=== PATIENT | male | born 1960 | race Caucasian/White ===

== ENCOUNTER 2024-08-26 16:47 | Emergency (ER) | payer OTHER, SELFPAY ==
[2024-08-26 17:02] VITALS: BP 183/91; PULSE 80; RESP 16; TEMP 37.8; O2SAT 99
--- NOTE | 2024-08-26 17:07 | ED_ITS ---
HPI - URI/Sore Throat General Chief Complaint: Upper Respiratory Infection Stated Complaint: achy,tired,tired Time Seen by Provider: 08/26/24 17:07 Source: patient, RN notes reviewed and old records reviewed Mode of arrival: ambulatory Limitations: no limitations History of Present Illness HPI Narrative: Patient presents with complaints of flu-like symptoms that began yesterday. He has been taking [id number] medication for his symptoms. Blood pressure is noted. Patient does report that he has ?white coat syndrome?. Repeat blood pressure was slightly better. He denies any shortness of breath or chest pain. Related Data Home Medications ?Medication ?Instructions ?Recorded ?Confirmed ?Last Taken ?Type amlodipine 10 mg tablet 10 mg PO DAILY 08/26/24 08/26/24 Unknown History aspirin 81 mg tablet,delayed 81 mg PO DAILY 08/26/24 08/26/24 Unknown History release (Adult Low Dose Aspirin) clonidine HCl 0.3 mg tablet 0.3 mg PO BID 08/26/24 08/26/24 Unknown History furosemide 20 mg tablet 20 mg PO DAILY 08/26/24 08/26/24 Unknown History lisinopril 40 mg tablet 40 mg PO BID 08/26/24 08/26/24 Unknown History metoprolol succinate 50 mg 50 mg PO DAILY 08/26/24 08/26/24 Unknown History tablet,extended release 24 hr omeprazole 40 mg capsule,delayed 40 mg PO BID 08/26/24 08/26/24 Unknown History release simvastatin 20 mg tablet 20 mg PO DAILY 08/26/24 08/26/24 Unknown History spironolactone 25 mg tablet 25 mg PO DAILY 08/26/24 08/26/24 Unknown History Allergies Allergy/AdvReac Type Severity Reaction Status Date / Time No Known Allergies Allergy Unverified 08/26/24 16:54 Review of Systems Review of Systems: All systems reviewed & are unremarkable except as noted in HPI and below Constitutional: Constitutional: Reports no additional constitutional complaints, Reports body ache(s), Reports fever(s) and Reports headache(s) ENT: Reports system reviewed and no additional complaints, except as documented, Reports nasal congestion, Reports nasal discharge and Reports sore throat Cardiovascular: Cardiovascular: Reports no additional cardiovascular co mplaints Respiratory: Respiratory: Reports no additional respiratory complaints and Reports cough Gastrointestinal: Gastrointestinal: Reports no additional gastrointestinal complaints PMFSH Comments At the time of my signature, I reviewed and agree with the nursing past medical, surgical, social, and family history. There is no relevant family history pertinent to the patient complaint. Exam Const: General: cooperative, no acute distress, alert and awake Orientation/consciousness: oriented to person, oriented to place and oriented to time HENMT: Head: normal to inspection Ears: TM's normal bilaterally Mouth: Yes moist mucous membranes Throat: postnasal drainage Resp: Effort & Inspection: normal respiratory effort and able to speak in complete sentences Auscultation: clear to auscultation bilaterally, no crackles, no rales, no rhonchi and no wheezes Cardio: Palpation: normal PMI Rate: regular rate Rhythm: regular rhythm Heart sounds: S1 normal heart sound present and S2 normal heart sound present Neuro: General: oriented to person, oriented to place and oriented to time Cranial nerves: Yes CN's II-XII intact bilaterally Psych: Appearance: grossly normal Thought process: Normal thought process present Insight: Good insight present (Psych) Judgement: Good judgement present (Psych) Course Course Level of Care: Express Care Visit Vital Signs Vital signs: Vital Signs Temperature 100.1 F H 08/26/24 17:02 Pulse Rate 80 08/26/24 17:02 Respiratory Rate 16 08/26/24 17:02 Blood Pressure 183/91 H 08/26/24 17:02 Pulse Oximetry 99 08/26/24 17:02 Oxygen Delivery Room Air 08/26/24 17:02 Temperature 100.1 F H 08/26/24 17:02 Pulse Rate 80 08/26/24 17:02 Respiratory Rate 16 08/26/24 17:02 Blood Pressure 183/91 H 08/26/24 17:02 Pulse Oximetry 99 08/26/24 17:02 Oxygen Delivery Room Air 08/26/24 17:02 Reviewed MDM - URI/Sore Throat MDM Narrative Medical decision making narrative: Patient looks remarkably good for having positive COVID and positive influenza B. Supportive care measures were discussed. Tamiflu prescribed. Blood pressure discussed at length. Patient does report that that he typically runs high in any medical office setting. States that he did take medications as prescribed today. He denies any chest pain or shortness of breath. He is nontoxic appearing, no distress. Discharge instructions reviewed with patient, as well as provided in writing per nursing staff. The instructions also include specific and strict return/GO TO THE ER as well as f/u information. All questions have been answered, and the patient deny any further questions with discharge and discharge plan. Some parts of this dictation were generated by voice recognition software and may contain typographical and/or grammatical inaccuracies. Differential Diagnosis Differential diagnosis: Likely upper respiratory infection, otitis media, viral infection, influenza and pharyngitis Medical Records Attestation: I reviewed the patient's medical records. Lab Data Attestation: I reviewed the patient's lab results. Discharge Plan Discharge Clinical Impression: Influenza, COVID Patient Disposition: Home, Self-Care Condition: Stable Instructions: Antibiotic Form, Influenza (ED), How to Recover from COVID-19 at Home (ED) Additional Instructions: Take all medication as prescribed. Follow with primary care provider. Emergency department for new or worse symptoms Patient Language: Northern Irish Prescriptions: New oseltamivir [Tamiflu] 75 mg capsule 75 mg PO Q12H 5 Days Qty: 10 0RF oseltamivir [Tamiflu] 75 mg capsule 75 mg PO Q12H 5 Days Qty: 10 0RF No Action amlodipine 10 mg tablet 10 mg PO DAILY clonidine HCl 0.3 mg tablet 0.3 mg PO BID furosemide 20 mg tablet 20 mg PO DAILY lisinopril 40 mg tablet 40 mg PO BID metoprolol succinate 50 mg tablet extended release 24 hr 50 mg PO DAILY omeprazole 40 mg capsule,delayed release(DR/EC) 40 mg PO BID simvastatin 20 mg tablet 20 mg PO DAILY spironolactone 25 mg tablet 25 mg PO DAILY aspirin [Adult Low Dose Aspirin] 81 mg tablet,delayed release (DR/EC) 81 mg PO DAILY Follow-up/Referrals: PHYSICIAN NOT ON STAFF,NONSTAFF [Primary Care Provider] - 3 Days Time of Disposition: 17:56
[2024-08-26 17:24] LABS: EDINFLUASCREEN Negative (Negative); EDINFLUBSCREEN Negative (Negative)
[2024-08-26 17:39] LABS: EDCOVIDSCREEN Positive (Negative)
[2024-08-26 18:10] VITALS: BP 168/102
== END 2024-08-26 18:10 | disposition home or self-care (01) ==
PROVIDERS: Emergency Provider Nurse Practitioner Family
DX: J10.1 Influenza due to other identified influenza virus with other respiratory manifestations (principal); U07.1 COVID-19; I10 Essential (primary) hypertension; E78.00 Pure hypercholesterolemia, unspecified; K21.9 Gastro-esophageal reflux disease without esophagitis; Z85.038 Personal history of other malignant neoplasm of large intestine; Z79.82 Long term (current) use of aspirin
CPT/HCPCS: 87426; 87804; 99203; G0463

== ENCOUNTER 2025-06-02 12:56 | Emergency (ER) | payer OTHER, SELFPAY ==
[2025-06-02 13:08] VITALS: BP 173/96; PULSE 70; RESP 18; TEMP 36.6; O2SAT 98
--- NOTE | 2025-06-02 13:48 | ED.NEUROSD ---
HPI - Neuro Symptoms/Deficit General Chief Complaint: Neuro Symptoms/Deficit Stated Complaint: I think I might be having an allergic reaction Time Seen by Provider: 06/02/25 13:37 Source: patient Mode of arrival: ambulatory Limitations: no limitations History of Present Illness HPI Narrative: This is a 65-year-old male with history of hypertension, pre diabetes who presents the ED for left facial droop. Patient states that since yesterday, he has been having facial droop. Denies headache. He states that he felt like he had an ear infection so he started taking some drops of Ciprodex that he a prior infection. Denies fevers, chills, numbness. Related Data Home Medications ?Medication ?Instructions ?Recorded ?Confirmed ?Last Taken ?Type amlodipine 10 mg tablet 10 mg PO DAILY 08/26/24 08/26/24 Unknown History aspirin 81 mg tablet,delayed 81 mg PO DAILY 08/26/24 08/26/24 Unknown History release (Adult Low Dose Aspirin) clonidine HCl 0.3 mg tablet 0.3 mg PO BID 08/26/24 08/26/24 Unknown History furosemide 20 mg tablet 20 mg PO DAILY 08/26/24 08/26/24 Unknown History lisinopril 40 mg tablet 40 mg PO BID 08/26/24 08/26/24 Unknown History metoprolol succinate 50 mg 50 mg PO DAILY 08/26/24 08/26/24 Unknown History tablet,extended release 24 hr omeprazole 40 mg capsule,delayed 40 mg PO BID 08/26/24 08/26/24 Unknown History release simvastatin 20 mg tablet 20 mg PO DAILY 08/26/24 08/26/24 Unknown History spironolactone 25 mg tablet 25 mg PO DAILY 08/26/24 08/26/24 Unknown History Allergies Allergy/AdvReac Type Severity Reaction Status Date / Time No Known Allergies Allergy Verified 06/02/25 13:13 Review of Systems Review of Systems: Gen.: Denies fevers or chills Eyes: Denies eye pain or visual change ENT: Denies congestion Respiratory: Denies shortness of breath or cough CV: Denies chest pain or palpitations GI: Denies abdominal pain nausea, emesis or diarrhea denies burning, urgency, frequency or hematuria Musculoskeletal: Denies back pain or muscle pain Neuro: As per HPI Skin: Denies rash Except as documented, all other systems reviewed and negative Exam Narrative: APPEARANCE: No acute distress, nontoxic, resting in bed HEENT: Normocephalic, atraumatic, OMM. Left TM clear. No vesicles noted to the ear canal or to the nose RESPIRATORY: No respiratory distress CARDIOVASCULAR: Appears well perfused ABDOMINAL: Nondistended MUSCULOSKELETAl: Moves all extremities. No obvious deformities NEURO: Awake and alert. Cranial nerve 7 palsy on the left SKIN:: Warm, dry. No rashes lesions or abrasions PSYCHIATRIC: Normal affect/mood, Course Vital Signs Vital signs: Vital Signs Temperature 98 F 06/02/25 13:08 Pulse Rate 70 06/02/25 13:08 Respiratory Rate 18 06/02/25 13:08 Blood Pressure 173/96 H 06/02/25 13:08 Pulse Oximetry 98 06/02/25 13:08 Oxygen Delivery Room Air 06/02/25 13:08 Temperature 98 F 06/02/25 13:08 Pulse Rate 58 L 06/02/25 14:43 Respiratory Rate 20 06/02/25 14:43 Blood Pressure 127/78 06/02/25 14:43 Pulse Oximetry 96 06/02/25 14:43 Oxygen Delivery Room Air 06/02/25 13:08 MDM - Neuro Symptoms/Deficit MDM Narrative Medical decision making narrative: 65-year-old male Presenting for facial droop. On initial evaluation patient was in no acute distress afebrile, hemodynamic stable. 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 No recent tick bites that he is aware of, no identifiable bull's-eye rash. No evidence of herpes zoster at this time. Patient will be started on steroid therapy. He was educated on a eye patch he was given eye drops and eye ointment for moisturization. He was advised follow-up with his PCP in the next week for re-evaluation. Patient was agreeable to this plan. Given strict return precautions. Medical Records Attestation: I reviewed the patient's medical records. Discharge Plan Discharge Clinical Impression: Negron's palsy Patient Disposition: Home Condition: Stable Instructions: Antibiotic Form Additional Instructions: Wear an eye patch at night to prevention from cutting her eye. Use eye ointment at night as well. Also use artificial tears throughout the day to keep her eye moist. Take prednisone as prescribed. Follow up with her PCP in the next week for re-evaluation. Return to the ED for any new or worsening symptoms. Patient Language: Micronesian Prescriptions: New Artificial Eye Lubricant 83-15 % ointment 1 applic LEFT EYE HS PRN (Reason: dry eye(s)) Qty: 3.5 0RF prednisone 20 mg tablet 60 mg PO DAILY 7 Days Qty: 21 0RF artificial tears(hypromellose) 0.5 % drops 2 drp LEFT EYE .hourly Qty: 15 0RF No Action amlodipine 10 mg tablet 10 mg PO DAILY clonidine HCl 0.3 mg tablet 0.3 mg PO BID furosemide 20 mg tablet 20 mg PO DAILY lisinopril 40 mg tablet 40 mg PO BID metoprolol succinate 50 mg tablet extended release 24 hr 50 mg PO DAILY omeprazole 40 mg capsule,delayed release(DR/EC) 40 mg PO BID simvastatin 20 mg tablet 20 mg PO DAILY spironolactone 25 mg tablet 25 mg PO DAILY aspirin [Adult Low Dose Aspirin] 81 mg tablet,delayed release (DR/EC) 81 mg PO DAILY oseltamivir [Tamiflu] 75 mg capsule 75 mg PO Q12H 5 Days Qty: 10 0RF oseltamivir [Tamiflu] 75 mg capsule 75 mg PO Q12H 5 Days Qty: 10 0RF Follow-up/Referrals: PHYSICIAN NOT ON STAFF,NONSTAFF [Primary Care Provider]
--- OUTSIDE RECORDS SUMMARY | 2025-06-02 13:51 | XMS_ITS | Encounter Summary ---
Author Organization [facility] Address [address] [facility] [facility] [address] [place] [address] Phone Care Team Providers Care Core Layer Machine Operator Name Role Phone Gloria Bailon MD Primary Care Provider + Jared Rojas DPT Unavailable + Brittany Bowman MD Unavailable [phone] Lucia Pan DPT Unavailable + [phone] Uday Campa MD PhD Unavailable [phone] Encounter Details Date Type Department Care Team (Late st Contact Info) Description 06/02/2025 [facility] [address] [facility] [address] 5[address] [place] [address] [place] [address] Gloria Bailon MD [address] [facility] [address] [place] [address] Social History Tobacco Use Types Packs/Day Years Used Date Smoking Tobacco: Never Passive Smoke Exposure: Never Smokeless Tobacco: Never AUDIT-C Answer Date Recorded Frequency of Alcohol Consumption Not on file 05/31/2025 Q2: How many drinks containi ng alcohol do you have on a typical day when you are drinking? 1 or 2 05/31/2025 Q3: How often do you have si x or more drinks on one occasion? Weekly 05/31/2025 Personal Safety Answer Date Recorded Have you ever been in or are you currently in a harmful physical or emotional relationship or is someone making you feel afraid or unsafe? Denies 06/08/2024 Sex and Gender Information Value Date Recorded Sex Assigned at Not on file Legal Sex Male 11:30 PM DIRECTOR ATHLETIC Gender Identity Male 06/06/2020 7:18 PM DIRECTOR ATHLETIC Sexual Orientation Straight 06/06/2020 7: 18 PM DIRECTOR ATHLETIC documented as of this encounter Miscellaneous Notes * Telephone Encounter - Gloria Bailon MD - 06/02/2025 12:33 PM DIRECTOR ATHLETIC Patient called. Lips swelling for unknown reason. Advised benadryl [address] to ER now. CTOR ATHLETIC documented in this encounter Plan of Treatment Scheduled Procedures Name Priority Associated Diagnoses Date/Ti me COLONOSCOPY Guaiac + stool Family history of colon cancer ESOPHAGOGASTRODUODENOSCOPY Guaiac + stool Family history of colon cancer documented as of this encounter Visit Diagnoses Not on filedocumented in this encounter Care Teams Core Layer Machine Operator Relationship Specialty Start Date End Date Gloria Bailon MD [address] [facility] [address] [place] [address] PCP - General Internal Medicine 05/23/19 Jared Rojas DPT [address] [facility] [address] [place] [address] Physical Therapist Physical Therapy 06/07/20 Brittany Bowman MD [address] [facility] [address] [place] [address] Consulting Physician Internal Medicine 05/18/23 Lucia Pan DPT [address] [place] [address] Physical Therapist Physical Therapy 03/12/24 Uday Campa MD PhD [address] [place] [address] Consulting Physician Medical Oncology 05/31/25 documented as of this encounter
--- OUTSIDE RECORDS SUMMARY | 2025-06-02 13:51 | XMS_ITS ---
Author Organization [facility] Address [address] [place] [address] Care Team Providers Care Occasional Caregiver Name Role Phone Gloria Bailon MD Primary Care Provider + Jared Rojas DPT Unavailable [phone] Brittany Bowman MD Unavailable [phone] Lucia Pan DPT Unavailable [phone] Uday Campa MD PhD Unavailable [phone] Active Problems Problem Noted Date Diagnosed Date Left ear pain 08/05/2023 Sensorineural hearing loss (SNHL) of both ears 0 08/05/2023 Cancer of right colon 06/23/2023 Malignant neoplasm of colon 05/28/2023 Malignant neoplasm of ascending colon 05/19/2023 Guaiac positive stools 05/06/2023 Elevated glucose 10/21/2022 Vitamin D deficiency 10/30/2020 Prediabetes 10/30/2020 Weight gain 10/30/2020 Arthritis 10/30/2020 Allergic rhinitis 10/25/2019 Hypertension, essential 10/16/2019 Elevated cholesterol 10/16/2019 Morbid obesity with BMI of 40.0-44.9, adult 09/18 Family history of colon cancer 10/16/2019 Zoster 10/16/2019 Current Treatment and Therapy Plans No current plan information found. Past Treatment and Therapy Plans No past plan information found. Lifetime Dose Tracking * Chemical Lifetime Dose Automatic Entry Manual Entr y DLP 2,691 mGycm 2,691 mGycm 0 mGycm Resolved Problems Problem Noted Date Diagnosed Date Resolved Date Renal insufficiency 10/16/2019 04/28/20
[2025-06-02 14:43] VITALS: BP 127/78; PULSE 58; RESP 20; O2SAT 96
== END 2025-06-02 14:45 | disposition home or self-care (01) ==
PROVIDERS: Emergency Provider Student in an Organized Health Care Education/Training Program
DX: G51.0 Bell's palsy (principal); I10 Essential (primary) hypertension; R73.03 Prediabetes; Z79.82 Long term (current) use of aspirin; Z79.899 Other long term (current) drug therapy
CPT/HCPCS: 99283